=== PATIENT | female | born 1995 | race Hispanic/Latino ===

== ENCOUNTER 2019-02-23 11:43 | Emergency (ER) | payer OTHER ==
[~2019-02-23] VITALS: Ht 154.9 cm; Wt 61.4 kg
[2019-02-23] MEDS ORDERED: FLAG500T PO (13:09)
[2019-02-23] MEDS ORDERED: metroNIDAZOLE (FLAGYL) 500 MG TAB PO ONE (13:15)
[2019-02-23 13:19] VITALS: BP 113/62
[2019-02-23 14:24] LABS: CHLAMYDIA DNA AMPLIFICATION NEGATIVE (NEGATIVE); GC DNA AMPLIFICATION NEGATIVE (NEGATIVE)
== END 2019-02-23 13:25 | disposition home or self-care (01) ==
LOC: M ED 11:43
DX: N76.0 Acute vaginitis (principal)

== ENCOUNTER 2019-03-30 12:52 | Emergency (ER) | payer OTHER ==
[~2019-03-30] VITALS: Ht 154.9 cm; Wt 62.7 kg
[~2019-03-30 12:52] MED LIST: FLAG500T PO
[2019-03-30 12:53] VITALS: BP 122/73
[2019-03-30 14:31] LABS: BASO % 0.9 % (0.0-1.0); EOS # 0.1 10^3/uL (0.0-0.50); EOS % 2.8 % (0.0-3.0); HEMATOCRIT 40.3 % (36.0-47.0); HEMOGLOBIN 13.1 g/dl (12.0-15.5); LYMPH # 1.4 10^3/uL (1.5-6.5); LYMPH % 30.5 % (24.0-44.0); MEAN CORPUSCULAR HEMOGLOBIN 30.4 pg (27.0-33.0); MEAN CORPUSCULAR HGB CONC 32.5 g/dl (32.0-36.5); MEAN CORPUSCULAR VOLUME 93.5 fl (80.0-96.0); MONO # 0.4 10^3/uL (0.0-0.8); NEUTROPHILS # 2.7 10^3/uL (1.8-7.7); NEUTROPHILS % 57.4 % (36.0-66.0); PLATELET COUNT, AUTOMATED 178 10^3/uL (150-450); RED BLOOD COUNT 4.31 10^6/uL (4.00-5.40); WHITE BLOOD COUNT 4.6 10^3/uL (4.0-10.0)
[2019-03-30 14:59] LABS: ALBUMIN 3.8 GM/DL (3.2-5.2); ALT/SGPT 12 U/L (12-78); BILIRUBIN,DIRECT 0.1 MG/DL (0.0-0.2); BILIRUBIN,TOTAL 0.4 MG/DL (0.2-1.0); BLOOD UREA NITROGEN 6 MG/DL (7-18); CARBON DIOXIDE LEVEL 30 MEQ/L (21-32); CHLORIDE LEVEL 104 MEQ/L (98-107); CREATININE FOR GFR 0.64 MG/DL (0.55-1.30); GLOMERULAR FILTRATION RATE > 60.0 (>60); GLUCOSE, FASTING 121 MG/DL (70-100); LIPASE 107 U/L (73-393); SODIUM LEVEL 139 MEQ/L (136-145); TOTAL PROTEIN 6.5 GM/DL (6.4-8.2)
[2019-03-30 15:22] LABS: HCG, SERUM QUANTITATIVE < 1.0 MIU/ML
[2019-03-30] MEDS ORDERED: GI COCKTAIL 50ML BTL(HYOSCYAMINE/MAALOX/LIDOCAINE VISCOUS)(1:3:1) PO ONE (16:30)
[2019-03-30] MEDS ORDERED: CARA1TAB6 PO (18:03)
[2019-03-30] MEDS ORDERED: PROT1TAB2 PO (18:03)
--- NOTE | 2019-03-31 07:09 | REP ---
GALLBLADDER ULTRASOUND: HISTORY: Right upper quadrant pain. There are no filling defects in the gallbladder. The common bile duct measures 2.2 mm. The liver and pancreas are normal in echogenicity. The right kidney measures 5.2 cm in transverse x 3.5 cm in AP x 10.6 cm in cephalocaudal dimensions. There is no hydronephrosis or mass. IMPRESSION:Normal gallbladder ultrasound. Electronically Signed by Jose Daniel Marie MD 03/31/2019 07:59 A
== END 2019-03-30 18:19 | disposition home or self-care (01) ==
LOC: M ED 12:52
DX: K21.0 Gastro-esophageal reflux disease with esophagitis (principal)